=== PATIENT | male | born 1960 | race African-American/Black ===

== ENCOUNTER 2020-07-22 13:52 | Emergency (ER) | payer SELFPAY ==
[~2020-07-22] VITALS: Ht 177.8 cm; Wt 95.0 kg
[2020-07-22 13:53] VITALS: BP 162/106
== END 2020-07-22 14:25 | disposition home or self-care (01) ==
LOC: ER 13:52
DX: Z76.0 Encounter for issue of repeat prescription (principal)
CPT/HCPCS: 99281

== ENCOUNTER 2023-02-17 11:52 | Emergency (ER) | payer OTHER ==
[~2023-02-17] VITALS: Ht 177.8 cm; Wt 95.2 kg
[2023-02-17 13:30] VITALS: BP 113/75
[2023-02-17] MEDS ORDERED: KETOROLAC 30MG/ML VIAL IM ONE (13:30)
[2023-02-17] MEDS ORDERED: ACETAMINOPHEN 325MG TABLET PO ONE (13:30)
[2023-02-17] MEDS ORDERED: TOPUD MT (13:52)
[2023-02-17] MEDS ORDERED: NAPR-681 MT (13:52)
== END 2023-02-17 14:27 | disposition home or self-care (01) ==
LOC: ER 12:34
DX: Z76.0 Encounter for issue of repeat prescription (principal); R56.9 Unspecified convulsions
CPT/HCPCS: 96372; 99283; J1885

== ENCOUNTER 2023-03-07 09:58 | Emergency (ER) | payer MEDICAID, OTHER ==
[~2023-03-07] VITALS: Ht 177.8 cm; Wt 95.5 kg
[~2023-03-07 09:58] MED LIST: NAPR-681 MT; TOPUD MT
[2023-03-07 10:21] VITALS: O2SAT 100
[2023-03-07] MEDS ORDERED: ACETAMINOPHEN 325MG TABLET PO ONE (10:45)
[2023-03-07 12:15] VITALS: BP 138/72; PULSE 68; RESP 16; TEMP 98.6
== END 2023-03-07 12:16 | disposition home or self-care (01) ==
LOC: ER 11:45
DX: S93.05XA Dislocation of left ankle joint, initial encounter (principal); Z86.59 Personal history of other mental and behavioral disorders; Z98.890 Other specified postprocedural states; Z00.00 Encounter for general adult medical examination without abnormal findings; X58.XXXA Exposure to other specified factors, initial encounter; Y93.89 Activity, other specified; Y92.89 Other specified places as the place of occurrence of the external cause; Y99.8 Other external cause status
CPT/HCPCS: 73610; 99283

== ENCOUNTER 2023-05-23 12:56 | Emergency (ER) | payer MEDICAID ==
[~2023-05-23] VITALS: Ht 177.8 cm; Wt 85.8 kg
[2023-05-23 13:14] VITALS: O2SAT 100
[2023-05-23] MEDS ORDERED: TOPUD MT (16:21)
[2023-05-23] MEDS ORDERED: IBUP-1523 MT (16:21)
[2023-05-23] MEDS ORDERED: ACETAMINOPHEN 325MG TABLET PO ONE (16:45)
[2023-05-23 16:52] VITALS: BP 137/86; PULSE 54; RESP 18; TEMP 98.4
== END 2023-05-23 18:09 | disposition left against medical advice (07) ==
LOC: ER 12:56
DX: S82.892A Other fracture of left lower leg, initial encounter for closed fracture (principal); Z86.59 Personal history of other mental and behavioral disorders; Z98.890 Other specified postprocedural states; W18.30XA Fall on same level, unspecified, initial encounter; Y93.89 Activity, other specified; Y92.89 Other specified places as the place of occurrence of the external cause; Y99.8 Other external cause status
CPT/HCPCS: 73610; 29515; 99283; Z7610

== ENCOUNTER 2023-11-19 09:26 | Emergency (ER) | payer MEDICAID ==
[~2023-11-19] VITALS: Ht 175.3 cm; Wt 79.0 kg
[~2023-11-19 09:26] MED LIST changes: +IBUP-1523 MT
[2023-11-19 09:38] VITALS: O2SAT 99
[2023-11-19] MEDS ORDERED: CEPH500C2 MT (11:21)
[2023-11-19] MEDS ORDERED: SULF1TAB48 MT (11:21)
[2023-11-19] MEDS ORDERED: NEOM1PAC6 TP (11:36)
[2023-11-19 12:54] VITALS: BP 129/91; PULSE 63; RESP 20; TEMP 98.5
== END 2023-11-19 13:03 | disposition home or self-care (01) ==
LOC: ER 09:26
DX: S61.219D Laceration without foreign body of unspecified finger without damage to nail, subsequent encounter (principal); L02.512 Cutaneous abscess of left hand; Z98.890 Other specified postprocedural states; X58.XXXD Exposure to other specified factors, subsequent encounter
CPT/HCPCS: 10160; 99283; 99284

== ENCOUNTER 2024-06-26 12:25 | Emergency (ER) | payer MEDICAID ==
[~2024-06-26] VITALS: Ht 177.8 cm; Wt 94.3 kg
[~2024-06-26 12:25] MED LIST changes: +CEPH500C2 MT; +NEOM1PAC6 TP; +SULF1TAB48 MT
[2024-06-26 12:27] VITALS: BP 105/69; PULSE 73; RESP 18; TEMP 98.7; O2SAT 98
[2024-06-26 12:38] VITALS: O2SAT 99
== END 2024-06-26 17:14 | disposition home or self-care (01) ==
LOC: ER 12:25
DX: B34.9 Viral infection, unspecified (principal); Z20.822 Contact with and (suspected) exposure to COVID-19; Z79.899 Other long term (current) drug therapy; Z98.890 Other specified postprocedural states
CPT/HCPCS: 71045; 87426; 87804; 99284

== ENCOUNTER 2025-05-20 11:34 | Emergency (ER) | payer MEDICAID ==
[~2025-05-20] VITALS: Ht 177.8 cm; Wt 65.0 kg
[2025-05-20 11:36] VITALS: O2SAT 97
[2025-05-20] MEDS: ACETAMINOPHEN 500MG TABLET PO ONE (13:20)
[2025-05-20] MEDS ORDERED: ACET-2708 MT (13:49)
[2025-05-20 14:07] VITALS: BP 142/86; PULSE 65; RESP 16; TEMP 36.5; O2SAT 97
== END 2025-05-20 14:09 | disposition home or self-care (01) ==
LOC: ER 11:34
DX: M25.571 Pain in right ankle and joints of right foot (principal); Z79.1 Long term (current) use of non-steroidal anti-inflammatories (NSAID)
CPT/HCPCS: 73610; 99283